=== PATIENT | female | born 1990 | race Caucasian/White ===

== ENCOUNTER 2019-04-17 14:12 | Emergency (ER) | payer MEDICAID, SELFPAY ==
[2019-04-17 14:13] VITALS: BP 148/92; PULSE 97; RESP 16; TEMP 36.5; O2SAT 98; BMI 22.0
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
[2019-04-17 17:08] VITALS: BP 122/83; PULSE 78; RESP 16; O2SAT 100
--- NOTE | 2019-04-17 17:08 | ED.RN ---
PT GIVEN WRITTEN AND VERBAL DISCHARGE INSTRUCTIONS AND OUTPATIENT MRI ORDER. PT VERBALIZES UNDERSTANDING AND DENIES ANY FURTHER QUESTIONS. PT TO ARRIVE FOR MRI AT 0800 TOMORROW. PT AMBULATES OUT OF DEPT BY SELF.
== END 2019-04-17 17:12 | disposition home or self-care (01) ==
PROVIDERS: Emergency Provider Emergency Medicine; Family Provider Family Medicine; PCP Family Medicine
DX: N64.4 Mastodynia (principal); T85.43XA Leakage of breast prosthesis and implant, initial encounter; Z88.5 Allergy status to narcotic agent
CPT/HCPCS: 99282

== ENCOUNTER → 2019-04-18 08:04 | Outpatient (CLI) | payer MEDICAID, SELFPAY ==
[2019-04-17 14:13] VITALS: BMI 22.0
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
== END ==
PROVIDERS: Family Provider Family Medicine; PCP Family Medicine; Visit Provider Emergency Medicine
DX: S29.9XXA Unspecified injury of thorax, initial encounter (principal); T85.43XA Leakage of breast prosthesis and implant, initial encounter; X58.XXXA Exposure to other specified factors, initial encounter; Y93.9 Activity, unspecified; Y92.9 Unspecified place or not applicable; Y99.9 Unspecified external cause status
CPT/HCPCS: 77047

== ENCOUNTER 2021-03-27 08:30 | Emergency (ER) | payer MEDICAID, SELFPAY ==
[2021-03-27 08:31] VITALS: BP 110/67; PULSE 79; RESP 14; TEMP 36.5; O2SAT 99; BMI 21.8
--- NOTE | 2021-03-27 08:37 | ED.RN ---
pt reports she was movng room on . firday bent over and something caught. painradiates down right leg. sharp stabbing pain.
--- NOTE | 2021-03-27 09:01 | ED.VIS.BACK ---
HPI History of Present Illness Chief Complaint: Back Informant: patient Narrative Narrative: Patient is a 31-year-old previously healthy female who presents to the emergency department for low back pain. She states that she was moving bedroom furniture on . She did not recall any inciting event at this time for her pain but the next day she bent over to pick something up whenever she stood up she developed severe low back pain. While sitting at rest the pain is a 7 out of 10. She tried taking Tylenol for this which does not give her significant relief. It is exacerbated by standing and sitting. She has had low back pain before but never to this severity. She occasionally will get pain going down the right side of her leg. She denies any urinary retention. No saddle anesthesia. No fevers or chills. She denies any abdominal pain or chest pain/shortness of breath. [facility] Medical History (Updated 03/27/21 @ 09:[address] Pardeep Polk DO) Bipolar 1 disorder Home Medications naproxen [Naprosyn] 500 mg PO BID PRN #20 tab 03/27/21 [Rx Last Taken Unknown] prednisone 40 mg PO DAILY 4 Days #8 tab 03/27/21 [Rx Last Taken Unknown] Allergy/AdvReac Type Severity Reaction Status Date / Time codeine Allergy Hives Verified 03/27/21 08:31 Social History Smoking Status: Never smoker ROS ROS ED Constitutional Constitutional ED: Denies chills or fever(s) Eyes Eyes: Denies change in vision ENT ENT ED: Denies epistaxis or rhinorrhea Cardiovascular Cardiovascular: Denies chest pain or palpitations Respiratory/Chest Respiratory/Chest: Denies cough, dyspnea or dyspnea on exertion Gastrointestinal Gastrointestinal: Denies abdominal pain, diarrhea, nausea or vomiting Genitourinary Genitourinary ED: Denies dysuria, hematuria or urinary frequency Musculoskeletal Musculoskeletal: Reports back pain; Denies neck pain Integumentary Denies rash Neurologic Neurologic: Denies dizziness, headache(s) or weakness EXAM Physical Exam Const Vital Signs: 03/27/21 08:31 Temperature 97.7 F L Temperature Source Temporal Pulse Rate 79 Respiratory Rate 14 Blood Pressure 110/67 Blood Pressure Mean 81 Pulse Ox 99 Oxygen Delivery Method Room Air Positive well nourished and well developed General Appearance ED: well developed and NAD HEENT Reports normocephalic, head/scalp atraumatic and moist mucous membranes Eyes PERRL and EOMs intact bilaterally Neck supple General: Negative for tenderness Resp normal respiratory effort and clear to auscultation bilaterally Auscultation: Negative for rales, rhonchi or wheezes Cardio regular rate, regular rhythm and no murmurs GI normal to inspection, nondistended, normoactive bowel sounds and non-tender Palpation: soft; Negative for guarding or rebound tenderness present Back/Spine no CVA tenderness and normal to inspection Cervical Spine: Negative for cervical spine tenderness Thoracic Spine / Upper Back: Negative for paraspinal muscle tenderness Lumbar Spine / Lower Back: straight leg raise negative bilaterally Extremity normal to inspection Extremity Narrative: 5 out of 5 muscle strength of lower extremities. Normal patellar reflexes bilaterally. Neurovascular intact. General Extremety ED: Negative for edema or tenderness General Extremity: Negative for edema Neuro no sensory deficits noted Sensorium / Orientation: alert Motor Exam: strength 5/5 throughout Psych mental status grossly normal Skin no rashes or lesions noted MDM MDM MDM Narrative Medical decision making narrative: Patient presents to the emergency department for nontraumatic low back pain. She was doing heavy lifting just prior to the onset. Patient could have small herniated disc. We will write a prescription for prednisone as well as Naprosyn. She is given a dose of Toradol here in the ED. She is given a work excuse as well. Patient advised to use heating pads over the area and rest. Return precautions are reviewed. This time no acute surgical pathological emergency of the low back suspected. No imaging indicated. This was all discussed with the patient. She understands and is agreeable this plan. All questions were answered. Discharge Plan Triage Chief Complaint: Back ED Provider: Pardeep Polk Dx/Rx/DC Orders Clinical Impression: Low back pain Instructions: ED Back Pain (Acute or Chronic) Prescriptions: New prednisone 20 mg tablet 40 mg PO DAILY 4 Days Qty: 8 RF: 0 naproxen [Naprosyn] 500 mg tablet 500 mg PO BID PRN (Reason: pain) Qty: 20 RF: 0 Primary Care Provider: Mayco Rashid III Referrals: Mayco Rashid III, MD [Primary Care Provider] - 3-5 Days if not improving Disposition Disposition: Home, Self Care
[2021-03-27] MEDS: Ketorolac 30 MG/ML Syringe IM (09:08)
== END 2021-03-27 10:02 | disposition home or self-care (01) ==
LOC: ED 09:08
PROVIDERS: Emergency Provider Emergency Medicine
DX: M54.5 Low back pain (principal)
CPT/HCPCS: 96372; 99282

== ENCOUNTER 2021-09-14 10:39 | Emergency (ER) | payer MEDICAID, SELFPAY ==
[2021-09-14 10:40] VITALS: BP 129/83; PULSE 102; RESP 18; TEMP 35.9; O2SAT 98; BMI 21.4
[2021-09-14 10:59] VITALS: BP 129/83; PULSE 102; RESP 18; TEMP 35.9; O2SAT 98
--- NOTE | 2021-09-14 11:11 | EDS_ITS ---
HPI History of Present Illness Chief Complaint: Abd Pain Informant: patient Narrative Narrative: 31-year-old female presenting to the emergency department with abdominal pain and diarrhea. Symptoms began around 0300 hrs. this morning. She states that around 6 she had a small amount of diarrhea. She notes the pain is intermittent in the I think she can do when it comes on is to curl up in a ball and moan. No fevers though she does note that her temperature was around 99 this morning. Her daughter was tested positive for COVID-19 yesterday. Patient denies any sore throat cough or runny nose. She denies any current vomiting. No urinary symptoms. [facility] Medical History (Updated 09/14/21 @ 13:[address] Tommie Dominguez DO) Bipolar 1 disorder Home Medications dicyclomine 10 mg PO TIDAC #20 capsule 09/14/21 [Rx Last Taken Unknown] mesalamine 2.4 g PO DAILY 56 Days #112 tab 09/14/21 [Rx Last Taken Unknown] Allergy/AdvReac Type Severity Reaction Status Date / Time codeine Allergy Hives Verified 09/14/21 10:41 Surgical History (Updated 09/14/21 @ 11:[address] Tommie Dominguez DO) History of section Social History (Updated 09/14/21 @ 11:[address] Tommie Dominguez DO) current gender identity: female Smoking Status: Never smoker ROS ROS ED Constitutional Constitutional ED: Denies chills, fever(s) or weight loss Eyes Eyes: Denies change in vision or diplopia ENT ENT ED: Denies ear pain, rhinorrhea or sore throat Cardiovascular Cardiovascular: Denies chest pain, orthopnea, palpitations or racing heartbeat Respiratory/Chest Respiratory/Chest: Denies cough, dyspnea or orthopnea Gastrointestinal Gastrointestinal: Reports abdominal pain and diarrhea; Denies nausea or vomiting Genitourinary Genitourinary ED: Denies dysuria, hematuria or urinary frequency Musculoskeletal Musculoskeletal: Denies arthralgias or myalgias Integumentary Denies abscess or rash Neurologic Neurologic: Denies headache(s) or weakness Psychiatric Psychiatric: Denies anxiety, depression, suicidal ideation or suicidal thoughts Endocrine Endocrinology: Denies polydipsia, polyphagia or polyuria Allergic/Immunologic Allergic/Immunologic ED: Denies mouth swelling, tongue swelling or urticaria EXAM Physical Exam Const Vital Signs: 09/14/21 10:40 09/14/21 10:59 09/14/21 12:59 Temperature 96.7 F L 96.7 F L Temperature Source Temporal Temporal Pulse Rate 102 H 102 H 105 H Respiratory Rate 18 18 18 Blood Pressure 129/83 H 129/83 H 120/78 Blood Pressure Mean 98 98 92 Pulse Ox 98 98 98 Oxygen Delivery Method Room Air Room Air Room Air Positive well nourished and well developed General Appearance ED: well developed HEENT Reports normocephalic, head/scalp atraumatic, TM's clear and moist mucous membranes Negative for trauma Tympanic Membrane ED: Yes TM's clear Eyes PERRL and EOMs intact bilaterally Neck no lymphadenopathy, supple and no JVD Resp normal respiratory effort and clear to auscultation bilaterally Cardio regular rate, regular rhythm and no murmurs GI GI Narrative: Generalized tenderness to palpation Auscultation: normoactive bowel sounds Palpation: soft; Negative for guarding or rebound tenderness present Back/Spine no CVA tenderness and normal ROM Extremity normal to inspection General Extremety ED: Negative for edema General Extremity: Negative for edema Neuro oriented x3 and CN's II-XII intact bilaterally Sensorium / Orientation: alert Motor Exam: strength 5/5 throughout Psych mental status grossly normal Mood & Affect: Negative for depressed or tearful Skin no rashes or lesions noted and no wounds MDM MDM MDM Narrative Medical decision making narrative: White count 6.5. CMP and lipase normal. Urinalysis slightly contaminated but no overt infection. Covid test is positive CT then pelvis demonstrates pancolitis. I spoke with Dr. Duran who is on-call for gastroenterology. We will be starting her on his alanine and Bentyl which has been helping her pain here. Lab Data Attestation: I reviewed the patient's lab results. Labs: Laboratory Results - last 24 hr 09/14/21 09/14/21 09/14/21 10:51 10:51 10:51 WBC 6.5 RBC 4.47 Hgb 13.6 Hct 39.3 MCV 87.9 MCH 30.4 MCHC 34.6 RDW Std Deviation 40.4 RDW Coeff of Kaity 12.6 Plt Count 279 MPV 9.9 Immature Gran % (Auto) 0.500 Neut % (Auto) 77.7 H Lymph % (Auto) 6.9 L Garrett % (Auto) 11.9 H Eos % (Auto) 2.1 Baso % (Auto) 0.9 Absolute Neuts (auto) 5.1 Absolute Lymphs (auto) 0.45 L Nucleated RBC % 0 Sodium 135 L Potassium 3.6 Chloride 106 Carbon Dioxide 23.0 Anion Gap 6 BUN 9 Creatinine 0.68 Estim Creat Clear Calc 125.60 Est GFR (MDRD) Af Amer 129 Est GFR (MDRD) Non-Af 107 BUN/Creatinine Ratio 13.2 Glucose 107 H Calcium 9.1 Total Bilirubin 0.90 AST 9 L ALT 15 Alkaline Phosphatase 53 Total Protein 7.9 Albumin 4.2 Globulin 3.7 Albumin/Globulin Ratio 1.1 Lipase 50 L Urine Color Yellow Urine Clarity Clear Urine pH 5.0 Ur Specific [place] 1.025 Urine Protein 15 H Urine Glucose (UA) Normal Urine Ketones 150 A* Urine Occult Blood Negative Urine Nitrite Negative Urine Bilirubin Negative Urine Urobilinogen Normal Ur Leukocyte Esterase Negative Urine RBC 0 SEEN Urine WBC 0-5 SEEN Ur Squamous Epith Cells 5-10 SEEN Urine Bacteria 1+ Urine Mucus RARE Urine Test Negative Radiography Diagnostic Testing: Clinical Impression(s) from Imaging Studies Abdomen/Pelvis CT 09/14/21 12:11 IMPRESSION: [place] colitis. 3.8 cm x 3.6 centimeters cyst in the right ovary. Electronically Signed: Antonio Klein MD at 12:35 EST Reading Location ID and State: [address] [place] [address] , Service support , Discharge Plan Triage Chief Complaint: Abd Pain ED Provider: Tommie Dominguez Dx/Rx/DC Orders Clinical Impression: COVID-19, Colitis Instructions: Coronavirus Disease 2019 (COVID-19): Caring for Yourself or Others Prescriptions: New dicyclomine 10 MG capsule 10 mg PO TIDAC Qty: 20 RF: 0 mesalamine 1.2 gram tablet,delayed release (DR/EC) 2.4 g PO DAILY 56 Days Qty: 112 RF: 0 Primary Care Provider: Jame Short Referrals: Jame Short DO [Primary Care Provider] - Friend,DO Josh [STAFF PHYSICIAN] - As soon as possible Disposition Disposition: Home, Self Care
[2021-09-14] MEDS: Ketorolac 30 MG/ML Syringe IV (11:16)
[2021-09-14 11:18] LABS: Red Blood Cells-Urine 0 SEEN /hpf (0-5)
[2021-09-14] MEDS: Dicyclomine 20 MG/2 ML Vial IM (11:19)
[2021-09-14 11:22] LABS: Color, Urine Yellow (Yellow); Glucose, Dipstick Normal (Normal); Leukocyte Esterase-Dipstick Negative /ul (Negative); Nitrite-Dipstick Negative (Negative); Occult Blood-Urine Negative /ul (Negative); Protein-Dipstick 15 mg/dl (Negative); Specific Gravity, Urine 1.025 (1.002-1.030); Urine Bilirubin Dipstick Negative (Negative); Urine Clarity Clear (Clear); Urine Urobilinogen Normal (Normal)
[2021-09-14 11:23] LABS: Ketone-Dipstick 150 mg/dl (Negative)
[2021-09-14 11:24] LABS: Internal QC Validated? YES +Cl - CLEAR BKGD
[2021-09-14 11:25] LABS: Absolute Lymphocyte Count 0.45 X10^3/uL (0.83-4.51); Absolute Neutrophil Count 5.1 X10^3/uL (2.0-7.7); Basophil# 0.06 X10^3/uL; Basophil% 0.9 % (0-1); Eosinophil# 0.14 X10^3/uL; Eosinophils% 2.1 % (0-5); Hematocrit 39.3 % (37-47); Hemoglobin 13.6 g/dL (12.0-15.0); Lymphocyte # 0.45 X10^3/ul (0.83-4.51); Lymphocyte % 6.9 % (19-41); Mean Corp Hgb Conc 34.6 g/dL (32-36); Mean Corpuscular Hgb 30.4 pg (27.0-32.0); Mean Corpuscular Volume 87.9 fL (81-99); Mean Platelet Vol. 9.9 fl (6.2-12.0); Monocyte# 0.78 X10^3/uL; Monocyte% 11.9 % (0-10); NRBC Flagged by Analyzer 0 % (0-5); Neutrophil # 5.07 X10^3/uL (2.7-7.7); Neutrophil % 77.7 % (47-70); POSITIVE DIFFERENTIAL YES; Platelet Count 279 K/mm3 (150-450); Pregnancy, Urine Negative Negative; RBC Distribution Width CV 12.6 % (11.6-14.6); RBC Distribution Width SD 40.4 fl (35.1-43.9); Red Blood Count 4.47 M/mm3 (4.2-5.4); White Blood Count 6.5 K/mm3 (4.4-11.0)
[2021-09-14 11:26] LABS: Differential Indicated SCAN CRITERIA MET
[2021-09-14 11:33] LABS: Bacteria 1+ /hpf (None Seen); Mucous, Urine RARE /hpf (<or=2+); Squamous Epithelial Cells - UA 5-10 SEEN /hpf (5-10); White Blood Cells 0-5 SEEN /hpf (0-5)
[2021-09-14 11:36] LABS: ALB/GLOB Ratio 1.1 RATIO (0.9-2.4); AST(SGOT) 9 U/L (15-37); Alanine Aminotransfer ALT/SGPT 15 U/L (13-56); Albumin, Serum 4.2 g/dL (3.2-5.0); Alkaline Phosphatase 53 U/L (45-117); Anion Gap 6 (5-15); BUN 9 mg/dL (7-18); BUN/Creat Ratio 13.2 RATIO (10-20); Calcium,Total 9.1 mg/dL (8.5-10.1); Chloride 106 mmol/L (98-107); Creatinine, Serum 0.68 mg/dL (0.55-1.02); EST Glomerular Filtration Rate 107 mL/min (>60); Est Glom Filt Rate - Afr Amer 129 mL/min (>60); Globulin 3.7 g/dL (2.2-4.2); Glucose 107 mg/dL (74-106); Lipase 50 U/L (73-393); Potassium 3.6 mmol/L (3.5-5.1); Protein, Total 7.9 g/dL (6.4-8.2); Sodium Level 135 mmol/L (136-145)
--- NOTE | 2021-09-14 12:11 | CT_ITS ---
STUDY: CT ABDOMEN AND PELVIS WITH CONTRAST REASON FOR EXAM: Female, 31 years old. Abdominal pain RADIATION DOSAGE (If Supplied By Facility): CTDIvol = ( 7.12 ) mGy, DLP = ( 569.78 ) mGycm TECHNIQUE: Transaxial images were obtained from the dome of the diaphragm to the symphysis pubis without oral contrast. IV 100mL Isovue-300 was administered. Sagittal and coronal images were reconstructed. Individualized dose optimization techniques were used for this CT. COMPARISON: None. FINDINGS: There is evidence of bilateral breast implants. The visualized lung bases are unremarkable. The visualized portions of the heart are within normal limits. Normal liver. Normal gallbladder and extrahepatic biliary system. Normal spleen. Normal pancreas. Normal bilateral adrenal glands. Normal right kidney. Normal left kidney. Normal visualized stomach. Normal small intestine. There is evidence of diffuse circumferential wall thickening involving the entire colon in keeping with a pancolitis. The appendix is visualized and appears normal. Normal abdominal aorta. Normal inferior vena cava. Normal retroperitoneum. Normal urinary bladder. There is a 3.8 cm x 3.6 cm cyst in the right ovary. Normal abdominal wall. Normal osseous structures. CT/Abdomen/Pelvis W IV Cont ONLY IMPRESSION: [place] colitis. 3.8 cm x 3.6 centimeters cyst in the right ovary. Electronically Signed: Antonio Klein MD at 12:35 EST ,
[2021-09-14 12:59] VITALS: BP 120/78; PULSE 105; RESP 18; O2SAT 98
[2021-09-14 13:37] VITALS: BP 124/66; PULSE 72; RESP 15; O2SAT 97
== END 2021-09-14 13:38 | disposition home or self-care (01) ==
PROVIDERS: Emergency Provider Emergency Medicine; PCP Student in an Organized Health Care Education/Training Program; Visit Provider Emergency Medicine
DX: U07.1 COVID-19 (principal); F31.9 Bipolar disorder, unspecified; K52.9 Noninfective gastroenteritis and colitis, unspecified; Z79.899 Other long term (current) drug therapy
CPT/HCPCS: 74177; 80053; 81001; 81025; 83690; 85025; 87426; 96372; 96374; 99284; Q9967; A4216

== ENCOUNTER 2023-05-17 14:42 | Emergency (ER) | payer MEDICAID, SELFPAY ==
[2023-05-17 14:42] VITALS: BP 135/83; PULSE 101; RESP 18; TEMP 36; O2SAT 98; BMI 20.9
--- NOTE | 2023-05-17 14:53 | EX.ED.DYSGE1 ---
HPI History of Present Illness Chief Complaint: Back Informant: patient Onset/Context/Timing Onset: Days Context: Gradual Onset Narrative Narrative: Presents secondary to low back pain. She has had bronchitis recently and was seen a couple days ago. COVID and flu swabs were negative. She states that she has increased back pain which she thinks is from the coughing. She was diagnosed about a year ago with a herniated disc in her lumbar spine. There is been no fall or direct trauma. No fever. He does radiate down into the pelvis, but does not radiate down her legs. No problems with bowel or bladder control. [facility] Medical History Bipolar 1 disorder Home Medications dicyclomine 10 mg capsule 10 mg PO TIDAC #20 CAPSULES 09/14/21 [Rx Last Taken Unknown] mesalamine 1.2 gram tablet,delayed release 2.4 g (2 x 1.2 gram) PO DAILY 8 weeks #112 tabs 09/14/21 [Rx Last Taken Unknown] cyclobenzaprine 10 mg tablet 10 mg PO TID PRN Muscle Spasm #20 TABLETS 05/17/23 [Rx Last Taken Unknown] lidocaine 5 % topical patch (Lidoderm) 1 patch topical DAILY #6 ea 05/17/23 [Rx Last Taken Unknown] naproxen 500 mg tablet (Naprosyn) 500 mg PO BID PRN pain #20 tabs 05/17/23 [Rx Last Taken Unknown] Allergy/AdvReac Type Severity Reaction Status Date / Time codeine Allergy Hives Verified 09/14/21 10:41 Surgical History History of section Social History Smoking Status: Never smoker ROS ROS ED Constitutional Constitutional ED: Denies chills or fever(s) Eyes Eyes: Denies change in vision or discharge from eye(s) ENT ENT ED: Denies discharge from eye(s), rhinorrhea or sore throat Cardiovascular Cardiovascular: Denies chest pain or palpitations Respiratory/Chest Respiratory/Chest: Reports cough and dyspnea Gastrointestinal Gastrointestinal: Denies abdominal pain, diarrhea, nausea or vomiting Genitourinary Genitourinary ED: Denies difficulty urinating or dysuria Musculoskeletal Musculoskeletal: Reports back pain; Denies extremity pain Integumentary Denies Abrasions or rash Neurologic Neurologic: Denies headache(s) or weakness Psychiatric Psychiatric: Denies anxiety or depression Allergic/Immunologic Allergic/Immunologic ED: Denies lip swelling or urticaria EXAM Physical Exam Const Vital Signs: 05/17/23 14:42 Temperature 96.8 F L Temperature Source Temporal Pulse Rate 101 H Respiratory Rate 18 Blood Pressure 135/83 H Blood Pressure Mean 100 Pulse Ox 98 Oxygen Delivery Method Room Air Positive well nourished and well developed General Appearance ED: well developed HEENT Reports normocephalic and head/scalp atraumatic Eyes PERRL and EOMs intact bilaterally Neck supple Chest Wall inspection of chest normal and palpation of chest normal Resp normal respiratory effort and clear to auscultation bilaterally Cardio regular rate and regular rhythm GI normal to inspection, nondistended, normoactive bowel sounds Palpation: soft Back/Spine no CVA tenderness Back/Spine Narrative: Tenderness in the right lumbar paraspinal muscles. No midline tenderness. No erythema or overlying skin changes. Extremity normal to inspection Neuro oriented x3 and no sensory deficits noted Sensorium / Orientation: alert Motor Exam: strength 5/5 throughout Psych mental status grossly normal Skin no rashes or lesions noted MDM MDM MDM Narrative Medical decision making narrative: 2 view chest x-ray is obtained to evaluate for possible lower lobe infiltrate given her cough and back pain. Patient is given naproxen and Lidoderm patch here. She did drive herself to the emergency room. Treatment and Re-Evaluation :: 2 view chest x-ray per my interpretation reveals no evidence of focal infiltrate. Radiology results are discussed with the patient. She will be given a prescription for naproxen, Lidoderm patches, and Flexeril. She was advised that the Flexeril can make her sleepy. She is to be sent to the pharmacy for her. Return instructions given. Discharge Plan Triage Chief Complaint: Back ED Provider: Kaleigh Tirado Dx/Rx/DC Orders Clinical Impression: Strain of lumbar paraspinal muscle, Muscle spasm, Bronchitis Instructions: ED Back Spasm, No Trauma, ED Bronchitis, No Antibiotic (Adult) Prescriptions: New naproxen [Naprosyn] 500 mg tablet 500 mg PO BID PRN (Reason: pain) Qty: 20 0RF lidocaine [Lidoderm] 5 % adhesive patch,medicated 1 patch topical DAILY Qty: 6 0RF Rx Instructions: leave on most painful area for up to 12 hrs cyclobenzaprine 10 mg tablet 10 mg PO TID PRN (Reason: Muscle Spasm) Qty: 20 0RF No Action dicyclomine 10 MG capsule 10 mg PO TIDAC Qty: 20 0RF mesalamine 1.2 gram tablet,delayed release (DR/EC) 2.4 g PO DAILY 56 Days Qty: 112 0RF Primary Care Provider: Jame Short Referrals: Jame Short DO [Primary Care Provider] - 1 Week if not improving Disposition Disposition: Home, Self Care
[2023-05-17] MEDS: Naproxen 500 MG Tablet PO (15:08)
[2023-05-17] MEDS: Lidocaine 5% Patch 1 PATCH TOPICAL (15:08)
--- NOTE | 2023-05-17 15:35 | RAD_ITS ---
STUDY: X-RAY CHEST REASON FOR EXAM: Female, 33 years old. cough, back pain TECHNIQUE: PA and lateral COMPARISON: None. FINDINGS: The lungs are clear and expanded. There is no demonstrated pleural abnormality. Normal size heart. Normal mediastinum and nik. Normal visualized pulmonary arteries. Normal visualized aortic arch and descending thoracic aorta. Normal visualized thoracic spine. Normal visualized ribs, clavicles, and shoulders. Bilateral breast prostheses are observed There is no demonstrated abnormality of the visualized soft tissue structures of the upper abdomen. RAD/Chest PA and Lateral IMPRESSION: No acute cardiopulmonary pathology Electronically Signed: Renato Esquivel MD at 17:01 EDT ,
== END 2023-05-17 15:55 | disposition home or self-care (01) ==
PROVIDERS: Emergency Provider Emergency Medicine; PCP Student in an Organized Health Care Education/Training Program; Visit Provider Emergency Medicine
DX: J40 Bronchitis, not specified as acute or chronic (principal); M62.838 Other muscle spasm; S39.012A Strain of muscle, fascia and tendon of lower back, initial encounter
CPT/HCPCS: 71046; 99282

== ENCOUNTER 2023-11-22 12:21 | Emergency (ER) | payer MEDICAID, SELFPAY ==
[2023-11-22 12:21] VITALS: BP 156/91; PULSE 92; RESP 18; TEMP 36.6; O2SAT 99; BMI 23.3
--- NOTE | 2023-11-22 12:57 | EDS_ITS ---
HPI History of Present Illness Chief Complaint: Other, Pain/Inj Informant: patient Narrative Narrative: Presents to ED after calling PCP through [facility] with concerning Nexplanon being broken after morning panel yesterday. States bumped her arm felt a bruise she is feeling the area feels like displacement. She had this placed in 2020 through [place]. She currently does not follow them. She was told to come the ED for x-rays for evaluation of her Nexplanon. No paresthesias to arm. 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 [facility] Medical History Bipolar 1 disorder Home Medications dicyclomine 10 mg capsule 10 mg PO TIDAC #20 CAPSULES 09/14/21 [Rx Last Taken Unknown] mesalamine 1.2 gram tablet,delayed release 2.4 g (2 x 1.2 gram) PO DAILY 8 weeks #112 tabs 09/14/21 [Rx Last Taken Unknown] cyclobenzaprine 10 mg tablet 10 mg PO TID PRN Muscle Spasm #20 TABLETS 05/17/23 [Rx Last Taken Unknown] lidocaine 5 % topical patch (Lidoderm) 1 patch topical DAILY #6 ea 05/17/23 [Rx Last Taken Unknown] naproxen 500 mg tablet (Naprosyn) 500 mg PO BID PRN pain #20 tabs 05/17/23 [Rx Last Taken Unknown] Allergy/AdvReac Type Severity Reaction Status Date / Time codeine Allergy Hives Verified 11/22/23 12:23 Surgical History History of section Social History Smoking Status: Never smoker ROS ROS ED Constitutional Constitutional ED: Denies chills, fever(s) or sweats Eyes Eyes: Denies change in vision ENT ENT ED: Denies dysphagia or sore throat Cardiovascular Cardiovascular: Denies chest pain, leg edema, palpitations or racing heartbeat Respiratory/Chest Respiratory/Chest: Denies cough, dyspnea or dyspnea on exertion Gastrointestinal Gastrointestinal: Denies abdominal pain, diarrhea, nausea or vomiting Genitourinary Genitourinary ED: Denies dysuria, hematuria or urinary frequency Musculoskeletal Musculoskeletal: Denies back pain, extremity pain or neck pain Integumentary Reports other Details: Contusion left arm ; Denies rash or wounds Neurologic Neurologic: Denies headache(s), paresthesias or weakness EXAM Physical Exam Const Vital Signs: 11/22/23 12:21 Temperature 97.9 F Temperature Source Temporal Pulse Rate 92 Respiratory Rate 18 Blood Pressure 156/91 H Blood Pressure Mean 112 Pulse Ox 99 Oxygen Delivery Method Room Air Positive well nourished and well developed General Appearance ED: well developed and NAD HEENT Reports moist mucous membranes normocephalic and atraumatic Eyes PERRL, EOMs intact bilaterally and conjunctivae normal General Eye ED: Yes normal appearance of both eyes Neck no lymphadenopathy and supple General: Negative for tenderness Chest Wall Chest: Negative for tenderness Resp normal respiratory effort and normal air movement Effort and Inspection: symmetric chest movement; Negative for respiratory distress Cardio regular rate, regular rhythm and no murmurs Peripheral Pulses: pulses 2+ throughout GI normal to inspection, nondistended, normoactive bowel sounds and non-tender Palpation: Negative for guarding or rebound tenderness present Back/Spine no CVA tenderness and no thoracic nor lumbar tenderness Extremity normal to inspection Extremity Narrative: Left upper arm medial aspect very slight contusion mid medial aspect arm. Evaluation of the Nexplanon, appears to have a defect distal third of the placement. Skin is intact. No bony tenderness. Soft compartments. General Extremety ED: Negative for edema or tenderness General Extremity: Negative for edema Neuro oriented x3 and no sensory deficits noted Sensorium / Orientation: awake and alert Skin no rashes or lesions noted and no wounds MDM MDM MDM Narrative Medical decision making narrative: Interventions / MDM: Differential diagnosis: Contusion, possible Nexplanon dysfunction Diagnosis considered but do not suspect: Fracture however clinically no bony tenderness. My EKG interpretation: N/A Imaging independently reviewed and interpreted by myself: N/A External documents reviewed: N/A Test considered but not ordered:N/A ED course: Patient arm contusion, defect noted on her Nexplanon placement. Discuss imagings would not change disposition at this time. Discussed would need evaluation by gynecology outpatient and they can determine if this needs to be replaced. She understands and agrees not to get the x-ray as it does not change the plan right now. She is contusion that we will improved. She is given follow-up with on-call gynecology. All questions were answered. Re-evaluation: stable Disposition discussed with patient/family/significant other: Patient Case discussed with consulting clinician: N/A This note was generated with [id number] dictation software. It may contain incorrect words, spelling, and punctuation that were not noted in checking the note before signing. Discharge Plan Triage Chief Complaint: Other, Pain/Inj ED Provider: Brian Alvarado Dx/Rx/DC Orders Clinical Impression: Nexplanon in place, Contusion of arm, left Instructions: Bruises (Contusions) Prescriptions: No Action dicyclomine 10 MG capsule 10 mg PO TIDAC Qty: 20 0RF mesalamine 1.2 gram tablet,delayed release (DR/EC) 2.4 g PO DAILY 56 Days Qty: 112 0RF naproxen [Naprosyn] 500 mg tablet 500 mg PO BID PRN (Reason: pain) Qty: 20 0RF lidocaine [Lidoderm] 5 % adhesive patch,medicated 1 patch topical DAILY Qty: 6 0RF Rx Instructions: leave on most painful area for up to 12 hrs cyclobenzaprine 10 mg tablet 10 mg PO TID PRN (Reason: Muscle Spasm) Qty: 20 0RF Primary Care Provider: Jame Short Referrals: Jame Short DO [Primary Care Provider] - Jasson Gutierrez MD [Med Staff - Active Staff] - 3-5 Days Activity Restrictions/Additional Instructions: Follow Dr. Gutierrez for evaluation for potential nexplanon dysfunction. Disposition Disposition: Home, Self Care
[2023-11-22 13:04] VITALS: BP 122/83; PULSE 90; RESP 16; TEMP 36.6; O2SAT 99
== END 2023-11-22 13:14 | disposition home or self-care (01) ==
PROVIDERS: Emergency Provider Emergency Medicine; PCP Student in an Organized Health Care Education/Training Program; Visit Provider Emergency Medicine
DX: S40.022A Contusion of left upper arm, initial encounter (principal); W22.8XXA Striking against or struck by other objects, initial encounter; Z30.46 Encounter for surveillance of implantable subdermal contraceptive
CPT/HCPCS: 99282

== ENCOUNTER 2024-05-03 08:46 | Emergency (ER) | payer MEDICAID, SELFPAY ==
[2024-05-03 08:48] VITALS: BP 115/85; PULSE 115; RESP 16; TEMP 37.2; O2SAT 97; BMI 23.3
--- NOTE | 2024-05-03 09:17 | EX.ED.VIS.UR ---
HPI HPI - URI History of Present Illness Chief Complaint: Cold Sx Informant: patient Onset/Context/Timing Onset: Days Context: Gradual Onset Timing: Continuous Current Severity: Mild Maximum Severity: Mild Associated Symptoms Associated Symptoms: Positive for Nonproductive cough Narrative Narrative: Healthy 34-year-old female has had a fever and cough since Monday. Son at home was diagnosed with pneumonia she was to make sure she has not. Denies other complaints. Prior similar symptoms: Yes Recent Illness/Hospitalization: No ROS ROS ED ROS Narrative Cough. Fever. Constitutional Constitutional ED: Reports fever(s) Eyes Eyes: Denies blurry vision ENT ENT ED: Denies ear pain Cardiovascular Cardiovascular: Denies chest pain Respiratory/Chest Respiratory/Chest: Reports cough; Denies dyspnea or dyspnea on exertion Gastrointestinal Gastrointestinal: Denies abdominal pain, diarrhea, nausea or vomiting Genitourinary Genitourinary ED: Denies dysuria or hematuria Musculoskeletal Musculoskeletal: Denies arthralgias Integumentary Denies abscess Neurologic Neurologic: Denies headache(s) Psychiatric Psychiatric: Denies anxiety Endocrine Endocrinology: Denies cold intolerance Hematologic/Lymphatic Hematologic/Lymphatic: Denies easy bleeding PFSH PFSH Medical History Bipolar 1 disorder Home Medications ?Medication ?Instructions ?Recorded ?Last Taken ?Type dicyclomine 10 mg capsule 10 mg PO TIDAC #20 CAPSULES 09/14/21 Unknown Rx mesalamine 1.2 gram tablet,delayed 2.4 g (2 x 1.2 gram) PO DAILY 8 09/14/21 Unknown Rx release weeks #112 tabs cyclobenzaprine 10 mg tablet 10 mg PO TID PRN Muscle Spasm #20 05/17/23 Unknown Rx TABLETS lidocaine 5 % topical patch 1 patch topical DAILY #6 ea 05/17/23 Unknown Rx (Lidoderm) naproxen 500 mg tablet (Naprosyn) 500 mg PO BID PRN pain #20 tabs 05/17/23 Unknown Rx azithromycin 250 mg tablet 250 mg PO DAILY 4 days #4 tabs 05/03/24 Unknown Rx (Zithromax) Allergy/AdvReac Type Severity Reaction Status Date / Time codeine Allergy Hives Verified 05/03/24 09:03 Surgical History History of section Social History Smoking Status: Never smoker EXAM Physical Exam Narrative Exam Narrative: Well-appearing 34-year-old female. Vital signs stable afebrile. Pulse ox 97% on room air no signs of hypoxia. H EENT exam posterior pharynx normal. No trouble swallowing or breathing. No erythema or exudate. Moist extremities. TMs normal. Neck nontender no lymphadenopathy. Lungs clear to auscultation bilaterally. Heart regular rate and rhythm no murmur. Chest wall ribs nontender. Abdomen soft nontender. Moving all 4 extremities. Nontender no edema. Back nontender. She is awake and alert. Very benign exam. Const Vital Signs: 05/03/24 08:48 05/03/24 09:01 Temperature 99 F Temperature Source Oral Pulse Rate 115 H Respiratory Rate 16 Respiratory Effort Normal Respiratory Pattern Normal Blood Pressure 115/85 H Blood Pressure Mean 95 Pulse Ox 97 Oxygen Delivery Method Room Air Positive well nourished and well developed; Negative for obese, cachectic or contractures General Appearance ED: well developed and NAD; Negative for cachectic, contractures, cyanotic, diaphoretic or pallor Nutritional Appearance: Negative for cachectic or obese HEENT Reports moist mucous membranes; Denies dry mucous membranes normocephalic and atraumatic; Negative for scalp tenderness Face and Sinus: Negative for sinus tenderness or maxillary instability Mouth ED: No dry mucous membranes Mouth: No dry mucous membranes Teeth and Gingiva: Negative for caries Throat: posterior oropharynx normal Eyes PERRL and EOMs intact bilaterally General Eye ED: Negative for pale conjunctiva or scleral icterus Neck no lymphadenopathy, supple, no meningeal signs and no JVD General: Negative for anterior neck swelling or lymphadenopathy Resp normal respiratory effort and clear to auscultation bilaterally Effort and Inspection: Negative for retractions Auscultation: Negative for rales, rhonchi, wheezes or diminished lung sounds Cardio S1 normal heart sound, S2 normal heart sound and no murmurs Rate: regular rate Rhythm: regular rhythm GI non-tender, non-distended and no masses Inspection: Negative for abdominal distention Auscultation: normoactive bowel sounds Palpation: soft; Negative for tender, guarding or hepatomegaly Back/Spine no CVA tenderness and normal ROM General Back: Negative for CVA tenderness Extremity normal to inspection and full ROM General Extremety ED: Negative for cyanosis or tenderness General Extremity: Negative for cyanosis Neuro oriented x3 and CN's II-XII intact bilaterally Sensorium / Orientation: alert, oriented to person, oriented to place and oriented to time; Negative for orientation impaired, lethargic or stuporous Motor Exam: strength 5/5 throughout Psych mental status grossly normal Appearance: Negative for other Attitude: No agitated Mood & Affect: Negative for depressed, anxious or tearful Skin General Skin Exam: Negative for jaundice or pallor Lesions: no lesions Rashes: no rashes Trauma: Negative for abrasion MDM MDM MDM Narrative Medical decision making narrative: 34-year-old female with URI. Chest x-ray being obtained. Repeat exam at 920 unchanged. We went over x-ray results. I explained her she had pneumonia. She will be started on Zithromax Z-MARY first dose given in the ER. Follow-up if not improving or return if worse. History & Record Review Discussion w/independent historian: Patient and Family Radiography Chest X-Ray - ED: 2 View and Read by ED Physician Diagnostic Testing: Chest x-ray, 2 views, AP and lateral, interpreted by myself shows right lower lobe pneumonia on both the AP and lateral films. I did go over the x-ray with the patient. Normal cardiac silhouette. Discharge Plan Triage Chief Complaint: Cold Sx ED Provider: Allen Hong Dx/Rx/DC Orders Clinical Impression: Right lower lobe pneumonia Instructions: ED Pneumonia (Adult) Prescriptions: New azithromycin [Zithromax] 250 mg tablet 250 mg PO DAILY 4 Days Qty: 4 0RF Rx Instructions: start on day 2 of therapy No Action dicyclomine 10 MG capsule 10 mg PO TIDAC Qty: 20 0RF mesalamine 1.2 gram tablet,delayed release (DR/EC) 2.4 g PO DAILY 56 Days Qty: 112 0RF naproxen [Naprosyn] 500 mg tablet 500 mg PO BID PRN (Reason: pain) Qty: 20 0RF lidocaine [Lidoderm] 5 % adhesive patch,medicated 1 patch topical DAILY Qty: 6 0RF Rx Instructions: leave on most painful area for up to 12 hrs cyclobenzaprine 10 mg tablet 10 mg PO TID PRN (Reason: Muscle Spasm) Qty: 20 0RF Primary Care Provider: Jame Short Referrals: Jame Short DO [Primary Care Provider] - 3-5 Days if not improving Activity Restrictions/Additional Instructions: Plenty of fluids and rest. Alternate Motrin and Tylenol for fever and bodyaches. Follow-up with your doctor if not improving. Complete the course of the antibiotic Zithromax. Print Language: Urdu Disposition Disposition: Home, Self Care
--- NOTE | 2024-05-03 09:20 | RAD_ITS ---
STUDY: X-RAY CHEST REASON FOR EXAM: Female, 34 years old. Cough TECHNIQUE: PA and lateral views of the chest. COMPARISON: Comparison is made with prior study May 17, 2023. FINDINGS: Right lower lobe infiltrate. There is no demonstrated pleural abnormality. Normal size heart. Normal mediastinum and nik. Normal visualized pulmonary arteries. Normal visualized aortic arch and descending thoracic aorta. Normal visualized thoracic spine. Normal visualized ribs, clavicles, and shoulders. There is no demonstrated abnormality of the visualized soft tissue structures of the upper abdomen. RAD/Chest PA and Lateral IMPRESSION: Right lower lobe infiltrate. Electronically Signed: Antonio Klein MD at 9:37 EDT ,
[2024-05-03] MEDS: Azithromycin 250 MG Tablet 500 MG PO (09:38)
== END 2024-05-03 09:45 | disposition home or self-care (01) ==
LOC: ED 09:34
PROVIDERS: Emergency Provider Emergency Medicine; PCP Student in an Organized Health Care Education/Training Program; Visit Provider Emergency Medicine
DX: J18.9 Pneumonia, unspecified organism (principal); F31.9 Bipolar disorder, unspecified
CPT/HCPCS: 71046; 99282

== ENCOUNTER 2024-09-14 08:01 | Emergency (ER) | payer MEDICAID, SELFPAY ==
[2024-09-14 08:02] VITALS: BP 118/79; PULSE 111; RESP 20; TEMP 36.6; O2SAT 95; BMI 24.3
[2024-09-14 08:04] VITALS: BP 118/79; PULSE 111; RESP 20; TEMP 36.8; O2SAT 95
--- NOTE | 2024-09-14 08:14 | EDS_ITS ---
HPI History of Present Illness Chief Complaint: Cough Informant: patient Narrative Narrative: 34-year-old female presenting to the emergency room out of concern for pneumonia. Patient states that she had was diagnosed with a pneumonia in April of this past year. She states this feels similar. Since Monday she has been experiencing headache cough rhinorrhea intermittent fevers and shortness of breath. She does not have a history of asthma or smoke. She states yesterday she tried her son's albuterol nebulizer with no significant relief. She denies any rashes vomiting or diarrhea but has had a decrease in appetite. She notes her son has been experiencing intermittent fevers and a slight cough. [facility] Medical History Bipolar 1 disorder Home Medications ?Medication ?Instructions ?Recorded ?Last Taken ?Type dicyclomine 10 mg capsule 10 mg PO TIDAC #20 CAPSULES 09/14/21 Unknown Rx mesalamine 1.2 gram tablet,delayed 2.4 g (2 x 1.2 gram ) PO DAILY 8 09/14/21 Unknown Rx release weeks #112 tabs cyclobenzaprine 10 mg tablet 10 mg PO TID PRN Muscle S pasm #20 05/17/23 Unknown Rx TABLETS lidocaine 5 % topical patch 1 patch topical DAILY #6 e a 05/17/23 Unknown Rx (Lidoderm) naproxen 500 mg tablet (Naprosyn) 500 mg PO BID PRN pa in #20 tabs 05/17/23 Unknown Rx azithromycin 250 mg tablet 250 mg PO DAILY 4 days #4 t abs 05/03/24 Unknown Rx (Zithromax) Allergy/AdvReac Type Severity Reaction Status Date / Time codeine Allergy Hives Verified 05/03/24 09:03 Surgical History History of section Social History Smoking Status: Never smoker ROS ROS ED Constitutional Constitutional ED: Reports fever(s); Denies chills or weight loss Eyes Eyes: Denies change in vision or diplopia ENT ENT ED: Reports rhinorrhea and other; Denies ear pain or sore throat Cardiovascular Cardiovascular: Reports other; Denies chest pain, orthopnea, palpitations or racing heartbeat Respiratory/Chest Respiratory/Chest: Reports cough; Denies dyspnea or orthopnea Gastrointestinal Gastrointestinal: Reports nausea; Denies abdominal pain, diarrhea or vomiting Genitourinary Genitourinary ED: Denies dysuria, hematuria or urinary frequency Musculoskeletal Musculoskeletal: Reports myalgias; Denies arthralgias Integumentary Denies abscess or rash Neurologic Neurologic: Reports headache(s); Denies weakness Psychiatric Psychiatric: Denies anxiety, depression, suicidal ideation or suicidal thoughts Endocrine Endocrinology: Denies polydipsia, polyphagia or polyuria Allergic/Immunologic Allergic/Immunologic ED: Denies mouth swelling, tongue swelling or urticaria EXAM Physical Exam Const Vital Signs: 09/14/24 08:02 09/14/24 08:04 09/14/24 08:36 Temperature 97.9 F 98.3 F Temperature Source Temporal Oral Pulse Rate 111 H 111 H Respiratory Rate 20 H 20 H Respiratory Effort Normal Respiratory Depth Shallow Respiratory Pattern Tachypnea Blood Pressure 118/79 118/79 Blood Pressure Mean 92 92 Pulse Ox 95 95 Oxygen Delivery Method Room Air Room Air Room Air 09/14/24 09:20 Temperature 98.9 F Temperature Source Pulse Rate 113 H Respiratory Rate 16 Respiratory Effort Respiratory Depth Respiratory Pattern Blood Pressure 112/67 Blood Pressure Mean 82 Pulse Ox 99 Oxygen Delivery Method Positive well nourished and well developed General Appearance ED: well developed HEENT Reports normocephalic, head/scalp atraumatic and moist mucous membranes HEENT Narrative: Mild rhinorrhea postnasal drip Eyes PERRL and EOMs intact bilaterally Neck no lymphadenopathy, supple and no JVD Resp normal respiratory effort and clear to auscultation bilaterally Resp Narrative: Dry hacking cough Cardio regular rate, regular rhythm and no murmurs GI normal to inspection, nondistended, normoactive bowel sounds and non-tender Palpation: soft Back/Spine no CVA tenderness and normal ROM Extremity normal to inspection General Extremety ED: Negative for edema General Extremity: Negative for edema Neuro oriented x3 and CN's II-XII intact bilaterally Sensorium / Orientation: alert Motor Exam: strength 5/5 throughout Psych mental status grossly normal Mood & Affect: Negative for depressed or tearful Skin no rashes or lesions noted and no wounds MDM MDM MDM Narrative Medical decision making narrative: Differential diagnosis includes but not limited to viral syndrome bronchitis pneumonia postnasal drip viral upper respiratory illness CHF pleural effusion COVID RSV and influenza swab was obtained and is positive for influenza. My independent interpretation the chest x-ray is no distinct infiltrate or effusion is noted. Radiology concurs. Patient will be discharged home with supportive care. Recommend antipyretics oral hydration monitoring breathing return if worsening or concerns History & Record Review Discussion w/independent historian: Patient Lab Data Attestation: I reviewed the patient's lab results. Radiography Diagnostic Testing: Clinical Impression(s) from Imaging Studies Chest X-Ray 09/14/24 08:28 IMPRESSION: UNREMARKABLE SINGLE VIEW OF THE CHEST AND ABDOMEN. Reading Location: [facility] Discharge Plan Triage Chief Complaint: Cough ED Provider: Tommie Dominguez Dx/Rx/DC Orders Clinical Impression: Influenza A, Cough Instructions: ED Influenza (Adult) Prescriptions: No Action dicyclomine 10 MG capsule 10 mg PO TIDAC Qty: 20 0RF mesalamine 1.2 gram tablet,delayed release (DR/EC) 2.4 g PO DAILY 56 Days Qty: 112 0RF naproxen [Naprosyn] 500 mg tablet 500 mg PO BID PRN (Reason: pain) Qty: 20 0RF lidocaine [Lidoderm] 5 % adhesive patch,medicated 1 patch topical DAILY Qty: 6 0RF Rx Instructions: leave on most painful area for up to 12 hrs cyclobenzaprine 10 mg tablet 10 mg PO TID PRN (Reason: Muscle Spasm) Qty: 20 0RF azithromycin [Zithromax] 250 mg tablet 250 mg PO DAILY 4 Days Qty: 4 0RF Rx Instructions: start on day 2 of therapy Primary Care Provider: Jame Short Referrals: Jame Short DO [Primary Care Provider] - As Needed Print Language: Japanese Disposition Disposition: Home, Self Care
--- NOTE | 2024-09-14 08:28 | RAD_ITS ---
PROCEDURE: CHEST PA AND LATERAL REASON FOR EXAM: Cough TECHNIQUE: Single frontal image including the chest and abdomen. COMPARISON: None. FINDINGS: The cardiothymic contour is normal. The lungs are clear. Bowel gas pattern is normal. No evidence of bowel obstruction or free air. The bones are unremarkable. No radiopaque foreign body is identified. RAD/Chest PA and Lateral IMPRESSION: UNREMARKABLE SINGLE VIEW OF THE CHEST AND ABDOMEN. [facility]
[2024-09-14 08:36] VITALS: O2SAT 95
[2024-09-14 09:20] VITALS: BP 112/67; PULSE 113; RESP 16; TEMP 37.2; O2SAT 99
== END 2024-09-14 09:24 | disposition home or self-care (01) ==
PROVIDERS: Emergency Provider Emergency Medicine; PCP Student in an Organized Health Care Education/Training Program; Visit Provider Emergency Medicine
DX: J10.1 Influenza due to other identified influenza virus with other respiratory manifestations (principal)
CPT/HCPCS: 71046; 87631; 99282

== ENCOUNTER → 2024-11-27 | Outpatient (CLI) | payer MEDICAID, SELFPAY ==
[2024-11-27 11:07] LABS: Absolute Lymphocyte Count 1.52 X10^3/uL (0.83-4.51); Absolute Neutrophil Count 4.2 X10^3/uL (2.0-7.7); Basophil# 0.04 X10^3/uL; Basophil% 0.6 % (0-1); Eosinophil# 0.12 X10^3/uL; Eosinophils% 1.9 % (0-5); Hematocrit 38.5 % (37-47); Hemoglobin 13.2 g/dL (12.0-15.0); Lymphocyte # 1.52 X10^3/ul (0.83-4.51); Mean Corp Hgb Conc 34.3 g/dL (32-36); Mean Corpuscular Hgb 30.2 pg (27.0-32.0); Mean Corpuscular Volume 88.1 fL (81-99); Mean Platelet Vol. 9.9 fl (6.2-12.0); Monocyte# 0.47 X10^3/uL; Monocyte% 7.4 % (0-10); NRBC Flagged by Analyzer 0 % (0-5); Neutrophil # 4.18 X10^3/uL (2.7-7.7); Neutrophil % 65.9 % (47-70); Platelet Count 272 K/mm3 (150-450); RBC Distribution Width CV 12.3 % (11.6-14.6); RBC Distribution Width SD 39.8 fl (35.1-43.9); Red Blood Count 4.37 M/mm3 (4.2-5.4); White Blood Count 6.3 K/mm3 (4.4-11.0)
[2024-11-27 11:38] LABS: ALB/GLOB Ratio 1.6 RATIO (0.9-2.4); AST(SGOT) 16 U/L (<=31); Alanine Aminotransfer ALT/SGPT 11 U/L (<=34); Albumin, Serum 4.4 g/dL (3.5-5.0); Alkaline Phosphatase 51 U/L (35-104); Anion Gap 10 (5-15); BUN 11 mg/dL (4-19); BUN/Creat Ratio 14.5 RATIO (10-20); Calcium,Total 9.3 mg/dL (7.6-11.0); Chloride 104 mmol/L (98-108); Cholesterol 173 mg/dL (<=200); Creatinine, Serum 0.77 mg/dL (0.70-1.20); EST Glomerular Filtration Rate 105 (>60); Globulin 2.8 g/dL (2.2-4.2); Glucose 95 mg/dL (70-99); High Density Lipoprotein 49 mg/dL; Low Density Lipoprotein Calc. 105 mg/dL; Potassium 4.4 mmol/L (3.3-5.1); Protein, Total 7.2 g/dL (5.9-8.4); Sodium Level 137 mmol/L (133-145); Total Bilirubin 0.52 mg/dL (0.00-1.30); Triglycerides 96 mg/dL; Very Low Density Lipoprotein 19 mg/dL (5-40); cholesterol:hdl ratio screen 3.51
[2024-11-27 11:40] LABS: Vitamin B12 491 pg/mL (180-914)
== END | disposition home or self-care (01) ==
LOC: VSLAB 08:43
PROVIDERS: PCP Family Medicine; Visit Provider Family Medicine
DX: Z00.00 Encounter for general adult medical examination without abnormal findings (principal); R53.83 Other fatigue; R63.5 Abnormal weight gain
CPT/HCPCS: 36415; 80053; 80061; 82306; 82533; 82607; 82627; 82670; 83001; 83002; 83036; 84402; 84403; 84443; 85025; 82626